=== PATIENT | female | born 1955 | race Caucasian/White ===

== ENCOUNTER 2023-04-27 10:12 | Day surgery (SDC) | payer MEDICARE, BC ==
[2023-04-25 15:07] VITALS: BMI 20.7
[2023-04-27] MEDS ORDERED: PROPOFOL 20 ML ONE (10:54)
[2023-04-27] MEDS ORDERED: Lidocaine 1% PF 5 ML VIAL ONE (10:55)
[2023-04-27] MEDS ORDERED: fentaNYL 50 mcg/mL 1 mL Vial ONE ×2 (10:55→13:13)
[2023-04-27] MEDS ORDERED: CEFAZOLIN 2 GM VIAL ONE (11:43)
[2023-04-27] MEDS ORDERED: Midazolam HCl 2 mg/2 ml Vial ONE (12:04)
[2023-04-27] MEDS ORDERED: Bupivacaine PF 0.5% 30 ML VIAL ONE (12:07)
[2023-04-27] MEDS ORDERED: PHENYLEPHRINE-NS 100 MCG/ML 10 ML SYRINGE ONE (12:14)
[2023-04-27] MEDS ORDERED: ePHEDrine Sulfate 50 MG/10 ML VIAL ONE (12:25)
[2023-04-27] MEDS ORDERED: Dexamethasone 4 mg/ml Vial ONE (12:44)
[2023-04-27] MEDS ORDERED: Ondansetron PF 4 MG/2 ML Vial ONE (12:44)
[2023-04-27] MEDS ORDERED: Ketorolac Tromethamine 30 MG/ML VIAL ONE (12:44)
[2023-04-27] MEDS ORDERED: HYDROcodone/Acetaminophen 5/325 mg Tablet ONE (13:27)
== END 2023-04-27 14:03 | disposition home or self-care (01) ==
LOC: CSHSDC 10:12
PROVIDERS: ATTEND Podiatrist Foot & Ankle Surgery
PROC: 0SGN04Z Fusion of Left Metatarsal-Phalangeal Joint with Internal Fixation Device, Open Approach (ICD-10-PCS; principal; 2023-04-27)
DX: M20.22 Hallux rigidus, left foot (principal); I10 Essential (primary) hypertension; E03.9 Hypothyroidism, unspecified; Z88.1 Allergy status to other antibiotic agents; Z88.5 Allergy status to narcotic agent; Z91.040 Latex allergy status; Z91.048 Other nonmedicinal substance allergy status
CPT/HCPCS: 28291; 73620; J3010; C1776; J1100; J1885; J2250; J2405; J2704; S0020